=== PATIENT | female | born 1965 | race Caucasian/White ===

== ENCOUNTER 2017-09-30 15:25 | Emergency (ER) | payer OTHER ==
[~2017-09-30] VITALS: Ht 157.5 cm; Wt 59.0 kg
[~2017-09-30 15:25] MED LIST: MAALOX MS LIQU360 ML PO; MILLIPRED DP5 M1 PO; NABUMETONE750 MG PO; PEPCID40 MG PO
[2017-09-30] MEDS ORDERED: SYNTHROID88 MCG PO (15:45)
== END 2017-09-30 21:47 | disposition home or self-care (01) ==
LOC: ER 15:25
DX: L03.116 Cellulitis of left lower limb (principal); S81.852S Open bite, left lower leg, sequela; W55.01XS Bitten by cat, sequela

== ENCOUNTER 2019-08-25 09:32 | Emergency (ER) | payer OTHER ==
[~2019-08-25] VITALS: Ht 157.5 cm; Wt 63.5 kg
[~2019-08-25 09:32] MED LIST changes: +SYNTHROID88 MCG PO
[2019-08-25] MEDS ORDERED: OSTERA TABLET1 EACH PO (09:49)
[2019-08-25] MEDS ORDERED: SYNTHROID75 MCG PO (09:49)
[2019-08-25] MEDS ORDERED: PRILOSEC OTC20 MG PO (09:50)
== END 2019-08-25 14:01 | disposition home or self-care (01) ==
LOC: ER 09:32
DX: S80.872A Other superficial bite, left lower leg, initial encounter (principal); S80.871A Other superficial bite, right lower leg, initial encounter; L03.116 Cellulitis of left lower limb; L03.115 Cellulitis of right lower limb; W54.0XXA Bitten by dog, initial encounter; Y93.89 Activity, other specified; Y92.89 Other specified places as the place of occurrence of the external cause; Y99.8 Other external cause status